=== PATIENT | female | born 1960 | race African-American/Black ===

== ENCOUNTER 2016-08-08 21:17 | Inpatient (IN) | payer MEDICAID ==
[~2016-08-08] VITALS: Ht 165.1 cm; Wt 109.0 kg
[~2016-08-08 21:17] MED LIST: ASPI81CH43 PO; Atorvastatin Calcium PO; CLO01T PO; LOSA100T27 PO; METO-169 PO; NITROSTAT SL; POT20T PO; SUCR1TAB PO; TRIA50TA2 PO; ZOLP5TAB5 PO
[2016-08-08 21:59] LABS: Basophils # (auto) 0 uL; Basophils % (auto) 0.1 % (0.0-2.0); DEFINITIVE VIEW TRANSMISSION; Eosinophils # (auto) 0 uL; Eosinophils % (auto) 0.2 % (0.0-7.0); Hematocrit 35.6 % (36.0-46.0); Hemoglobin 11.9 g/dL (12.2-16.2); Lymphocytes # (auto) 1.1 uL; Lymphocytes % (auto) 6.9 % (10.0-50.0); Mean Corpuscular Hemoglobin 26.5 pg (28.0-32.0); Mean Corpuscular Hgb Conc. 33.5 g/dL (32.0-36.0); Mean Corpuscular Volume 79.2 fL (80.0-100.0); Mean Platelet Volume 8.5 fL (7.4-10.4); Monocytes # (auto) 0.7 uL; Monocytes % (auto) 4.4 % (0.0-12.0); Neutrophils % (auto) 88.4 % (37.0-80.0); Platelet Count (auto) 331 10^3/uL (140-450); Red Cell Distribution Width 16.1 % (11.6-16.0); White Blood Cell 15.9 10^3/uL (4.4-10.8)
[2016-08-08 22:29] LABS: INR 1.11 (0.9-1.15); Partial Thromboplastin Time 27.3 sec (22.64-33.71); Prothrombin Time 11.4 sec (9.37-12.3)
[2016-08-08 22:33] LABS: Albumin 3.3 g/dL (3.4-5.0); BUN/Creatinine Ratio 14.2; Calcium 8.7 mg/dL (8.5-10.1); Magnesium 2.2 mg/dL (1.6-2.6); Potassium 3.4 mmol/L (3.5-5.1)
[2016-08-08 22:38] LABS: Bilirubin, Total 1.3 mg/dL (0.2-1.0); Total Protein 7.9 g/dL (6.4-8.2)
[2016-08-08] MEDS ORDERED: cloNIDine HCL 0.1 MG TAB ONE (22:41)
[2016-08-08] MEDS ORDERED: cloNIDine HCL 0.1 MG TAB PO ONE (22:45)
[2016-08-08] MEDS ORDERED: hydrALAZINE HCL 20 MG/ML VL IV ONE (23:00)
[2016-08-08] MEDS ORDERED: ONDANSETRON HCL 4 MG/2 ML VIAL IV ONE (23:00)
[2016-08-09] VITALS (8 sets, daily range): BP systolic 110–185; BP diastolic 71–117
[2016-08-09] MEDS ORDERED: NITROGLYCERIN 0.4 MG SL TAB SL ONE (00:45)
[2016-08-09] MEDS ORDERED: ENOXAPARIN SOD 100 MG/1 ML SYRINGE SC ONE (00:45)
[2016-08-09] MEDS ORDERED: MORPHINE SULFATE 4 MG/ML SYRG IV ONE (00:45)
[2016-08-09] MEDS ORDERED: ASPirin 81 mg TAB PO ONE (00:45)
[2016-08-09] MEDS ORDERED: ONDANSETRON HCL 4 MG/2 ML VIAL IV ONE (00:45)
[2016-08-09] MEDS ORDERED: cefTRIAXone 1GM/50ML D5W 50 ML IV ONE (00:45)
[2016-08-09 01:21] LABS: Temperature: 21.6 C (20.0-25.0)
[2016-08-09] MEDS ORDERED: MORPHINE SULF INJ 2 MG/ML SYRINGE 1ML IV PRN ×2 (02:15)
[2016-08-09] MEDS ORDERED: FUROSEMIDE 20 MG/2 ML VIAL IV ONE (02:15)
[2016-08-09] MEDS ORDERED: AZITHROMYCIN 500MG/D5W 250ML 250 ML IV ONE (02:15)
[2016-08-09] MEDS ORDERED: NITROGLYCERIN 0.4 MG SL TAB SL PRN (02:15)
[2016-08-09] MEDS ORDERED: DEXTROSE (50%) 50ML SYRG IV PRN (02:15)
[2016-08-09] MEDS ORDERED: HYDROcodone-ACET 5/325MG TAB PO PRN (02:15)
[2016-08-09] MEDS ORDERED: ALBUTEROL SULF 2.5 MG/0.5ML(0.5%) NEB SOLN NEB PRN (02:15)
[2016-08-09] MEDS ORDERED: ONDANSETRON HCL 4 MG/2 ML VIAL IV PRN (02:15)
[2016-08-09] MEDS ORDERED: POTASSIUM CHL 20 Meq TABLET PO ONE (02:15)
[2016-08-09] MEDS ORDERED: ACETAMINOPHEN 325 MG TAB PO PRN (02:15)
[2016-08-09] MEDS ORDERED: cloNIDine HCL 0.1 MG TAB PO ONE (02:45)
[2016-08-09] MEDS ORDERED: METOPROLOL TARTRATE 1MG/1ML-5ML VIAL IV ONE (05:00)
[2016-08-09] MEDS ORDERED: CLOPIDOGREL 300 MG TAB PO ONE (05:30)
[2016-08-09] MEDS: cloNIDine HCL 0.1 MG TAB PO SCH ×3 (05:55→22:28)
[2016-08-09] MEDS: ACCU-CHEK COMFORT CURVE STRIP VI SCH ×3 (05:56→18:08)
[2016-08-09] MEDS: InsuLIN REG 1unit/0.01ml Soln (100units/ml) SC SCH ×3 (05:56→18:00)
[2016-08-09] MEDS ORDERED: ENOXAPARIN SOD 40 MG/0.4 ML SYRINGE SC SCH (10:00)
[2016-08-09] MEDS ORDERED: LOSARTAN POTASSIUM 50 MG TAB PO SCH (10:00)
[2016-08-09] MEDS: ASPirin 81 mg TAB PO SCH (10:13)
[2016-08-09] MEDS: METOPROLOL TARTRATE 50 MG TAB PO SCH ×2 (10:16→22:29)
[2016-08-09] MEDS: FAMOTIDINE 20 MG TAB PO SCH ×2 (10:17→22:28)
[2016-08-09] MEDS: ENOXAPARIN SOD 100 MG/1 ML SYRINGE SC SCH ×2 (10:18→22:29)
[2016-08-09 11:35] LABS: Basophils # (auto) 0 uL; Basophils % (auto) 0.2 % (0.0-2.0); DEFINITIVE VIEW TRANSMISSION; Eosinophils # (auto) 0.2 uL; Eosinophils % (auto) 1.8 % (0.0-7.0); Hematocrit 31.6 % (36.0-46.0); Hemoglobin 10.3 g/dL (12.2-16.2); Lymphocytes # (auto) 0.9 uL; Lymphocytes % (auto) 8.3 % (10.0-50.0); Mean Corpuscular Hemoglobin 26.5 pg (28.0-32.0); Mean Corpuscular Hgb Conc. 32.5 g/dL (32.0-36.0); Mean Corpuscular Volume 81.6 fL (80.0-100.0); Mean Platelet Volume 8.1 fL (7.4-10.4); Monocytes # (auto) 0.8 uL; Monocytes % (auto) 7.1 % (0.0-12.0); Neutrophils # (auto) 9.3 uL; Neutrophils % (auto) 82.6 % (37.0-80.0); Platelet Count (auto) 279 10^3/uL (140-450); Red Cell Distribution Width 16.2 % (11.6-16.0); White Blood Cell 11.2 10^3/uL (4.4-10.8)
[2016-08-09 12:14] LABS: BUN/Creatinine Ratio 14.1; Calcium 8.5 mg/dL (8.5-10.1); Potassium 3.7 mmol/L (3.5-5.1)
[2016-08-09] MEDS ORDERED: SODIUM CHLORIDE 0.9% 500 ML IV ONE (13:00)
[2016-08-09] MEDS: guaiFENesin-DEXTROMETHORPHAN 5ML SYR PO PRN ×2 (14:20→22:36)
[2016-08-09] MEDS ORDERED: SODIUM CHLORIDE 0.9% 1,000 ML IV SCH (17:45)
[2016-08-09] MEDS ORDERED: cefTRIAXone 1GM/50ML D5W 50 ML IV SCH (22:00)
[2016-08-09] MEDS ORDERED: AZITHROMYCIN 500MG/D5W 250ML 250 ML IV SCH (22:00)
[2016-08-10] MEDS: ACCU-CHEK COMFORT CURVE STRIP VI SCH ×4 (00:22→18:00)
[2016-08-10 05:00] VITALS: BP 136/90
[2016-08-10 05:39] LABS: Urine Bilirubin Negative (Negative); Urine Color Yellow (Yellow); Urine Glucose Normal (Normal); Urine Hyaline Cast MOD /lpf (0 - 2); Urine Ketone Negative (Negative); Urine Mucus FEW (None Seen); Urine Nitrite Negative (Negative); Urine RBC 302 /hpf (0 - 4); Urine Squamous Epithelial Cell MOD /hpf (<5); Urine pH 5.5 (5.0-8.0)
[2016-08-10 05:42] LABS: Urine Blood 2+ /uL (Negative)
[2016-08-10 05:53] LABS: Basophils # (auto) 0 uL; Basophils % (auto) 0.3 % (0.0-2.0); DEFINITIVE VIEW TRANSMISSION; Eosinophils # (auto) 0.4 uL; Hematocrit 33.8 % (36.0-46.0); Hemoglobin 11.3 g/dL (12.2-16.2); Lymphocytes # (auto) 1.1 uL; Lymphocytes % (auto) 10.1 % (10.0-50.0); Mean Corpuscular Hemoglobin 26.8 pg (28.0-32.0); Mean Corpuscular Hgb Conc. 33.5 g/dL (32.0-36.0); Mean Corpuscular Volume 80.1 fL (80.0-100.0); Monocytes # (auto) 0.8 uL; Monocytes % (auto) 7.3 % (0.0-12.0); Neutrophils # (auto) 8.6 uL; Neutrophils % (auto) 78.3 % (37.0-80.0); Platelet Count (auto) 306 10^3/uL (140-450); Red Cell Distribution Width 15.8 % (11.6-16.0)
[2016-08-10] MEDS: cloNIDine HCL 0.1 MG TAB PO SCH ×2 (05:54→15:13)
[2016-08-10] MEDS: InsuLIN REG 1unit/0.01ml Soln (100units/ml) SC SCH ×4 (06:01→18:00)
[2016-08-10 06:37] LABS: Potassium 4.2 mmol/L (3.5-5.1)
[2016-08-10 06:38] LABS: Albumin 2.8 g/dL (3.4-5.0); BUN/Creatinine Ratio 19.5; Bilirubin, Total 0.5 mg/dL (0.2-1.0); Magnesium 2.6 mg/dL (1.6-2.6); Phosphorus 3.1 mg/dL (2.5-4.90); Total Protein 7.5 g/dL (6.4-8.2); Uric Acid 7.9 mg/dL (2.6-6.0)
[2016-08-10 09:00] VITALS: BP 140/64
[2016-08-10] MEDS ORDERED: CLOPIDOGREL BISULFATE 75 MG TAB PO SCH (10:00)
[2016-08-10] MEDS: ENOXAPARIN SOD 100 MG/1 ML SYRINGE SC SCH (10:05)
[2016-08-10] MEDS: FAMOTIDINE 20 MG TAB PO SCH (10:05)
[2016-08-10] MEDS: ASPirin 81 mg TAB PO SCH (10:05)
[2016-08-10] MEDS: METOPROLOL TARTRATE 50 MG TAB PO SCH (10:06)
[2016-08-10] MEDS ORDERED: GADOPENTETATE DIMEGLUMINE (10MMOL/20 ML) VIAL IV ONE (12:27)
[2016-08-10 13:00] VITALS: BP 151/62
[2016-08-10] MEDS ORDERED: LORazepam 2MG/ML-1ML VIAL IV ONE (13:45)
[2016-08-10] MEDS ORDERED: LEVO500T3 PO (16:52)
[2016-08-10] MEDS ORDERED: ALBUAER3 IN (16:52)
[2016-08-10 17:00] VITALS: BP 151/82
[2016-08-10 17:02] VITALS: BP 151/82
== END 2016-08-10 19:05 | disposition home health service (06) | DRG 140 ==
LOC: ER 21:21 → TELE 21:22 → TELE-CENTR 08-09 06:32
PROVIDERS: ADMIT Nurse Practitioner; ATTEND Internal Medicine
DX: J44.0 Chronic obstructive pulmonary disease with (acute) lower respiratory infection (principal); N17.0 Acute kidney failure with tubular necrosis; I50.33 Acute on chronic diastolic (congestive) heart failure; J18.9 Pneumonia, unspecified organism; I13.0 Hypertensive heart and chronic kidney disease with heart failure and stage 1 through stage 4 chronic kidney disease, or unspecified chronic kidney disease; E11.22 Type 2 diabetes mellitus with diabetic chronic kidney disease; N18.3 Chronic kidney disease, stage 3 (moderate); E86.0 Dehydration; D64.9 Anemia, unspecified; E66.9 Obesity, unspecified; E78.5 Hyperlipidemia, unspecified; H05.89 Other disorders of orbit; R07.89 Other chest pain; I16.0 Hypertensive urgency; I25.10 Atherosclerotic heart disease of native coronary artery without angina pectoris; H53.8 Other visual disturbances; J45.909 Unspecified asthma, uncomplicated; K21.9 Gastro-esophageal reflux disease without esophagitis; Z82.3 Family history of stroke; Z82.49 Family history of ischemic heart disease and other diseases of the circulatory system; Z87.442 Personal history of urinary calculi; Z79.810 Long term (current) use of selective estrogen receptor modulators (SERMs); Z86.718 Personal history of other venous thrombosis and embolism; Z68.41 Body mass index [BMI] 40.0-44.9, adult
CPT/HCPCS: 36415; 70450; 70540; 71010; 74176; 76775; 80048; 80053; 81001; 82570; 82962; 83735; 83880; 83970; 84100; 84156; 84300; 84443; 84484; 84550; 85025; 85610; 85730; 87040; 93005; 96365; 96372; 96375; 96376; J0696; J1815; J2405

== ENCOUNTER 2016-10-21 19:55 | Inpatient (IN) | payer MEDICAID ==
[~2016-10-21] VITALS: Ht 167.6 cm; Wt 109.6 kg
[~2016-10-21 19:55] MED LIST changes: +ALBUAER3 IN; +LEVO500T21 PO; -LOSA100T27 PO; -TRIA50TA2 PO
[2016-10-21] MEDS ORDERED: METOPROLOL TARTRATE 50 MG TAB PO ONE ×2 (20:30→20:45)
[2016-10-21] MEDS ORDERED: ASPirin 81 mg TAB PO ONE ×3 (20:30→23:45)
[2016-10-21 22:23] LABS: Basophils # (auto) 0 uL; Basophils % (auto) 0.6 % (0.0-2.0); DEFINITIVE VIEW TRANSMISSION; Eosinophils # (auto) 0.3 uL; Eosinophils % (auto) 4.1 % (0.0-7.0); Hematocrit 35.6 % (36.0-46.0); Hemoglobin 11.9 g/dL (12.2-16.2); Lymphocytes # (auto) 1.8 uL; Lymphocytes % (auto) 24.7 % (10.0-50.0); Mean Corpuscular Hemoglobin 26.7 pg (28.0-32.0); Mean Corpuscular Hgb Conc. 33.3 g/dL (32.0-36.0); Mean Corpuscular Volume 80.1 fL (80.0-100.0); Mean Platelet Volume 9.3 fL (7.4-10.4); Monocytes # (auto) 0.5 uL; Monocytes % (auto) 6.8 % (0.0-12.0); Neutrophils # (auto) 4.7 uL; Neutrophils % (auto) 63.8 % (37.0-80.0); Platelet Count (auto) 330 10^3/uL (140-450); Red Cell Distribution Width 16.8 % (11.6-16.0); White Blood Cell 7.4 10^3/uL (4.4-10.8)
[2016-10-21 22:29] LABS: Potassium 3.1 mmol/L (3.5-5.1)
[2016-10-21 22:34] LABS: INR 0.95 (0.9-1.15); Prothrombin Time 10.3 sec (9.37-12.3)
[2016-10-21 22:36] LABS: Albumin 3.2 g/dL (3.4-5.0); BUN/Creatinine Ratio 14.1; Bilirubin, Total 0.4 mg/dL (0.2-1.0); Calcium 8.7 mg/dL (8.5-10.1); Magnesium 2.2 mg/dL (1.6-2.6); Total Protein 7.7 g/dL (6.4-8.2)
[2016-10-21] MEDS ORDERED: MORPHINE SULFATE 4 MG/ML SYRG IV ONE (23:45)
[2016-10-21] MEDS ORDERED: cloNIDine HCL 0.1 MG TAB PO ONE (23:45)
[2016-10-21] MEDS ORDERED: NITROGLYCERIN 2% OINT 1GM PKG TD ONE (23:45)
[2016-10-21] MEDS ORDERED: ONDANSETRON HCL 4 MG/2 ML VIAL IV ONE (23:45)
[2016-10-21 23:48] LABS: B-Type Natriuretic Peptide 144.07 pg/mL (0-100)
[2016-10-22] VITALS (8 sets, daily range): BP systolic 109–167; BP diastolic 62–100
[2016-10-22] MEDS ORDERED: MORPHINE SULF INJ 2 MG/ML SYRINGE 1ML IV PRN
[2016-10-22] MEDS ORDERED: NITROGLYCERIN 0.4 MG SL TAB SL PRN
[2016-10-22] MEDS ORDERED: LABETALOL HCL 5 MG/ML 4ML SYRINGE IV PRN
[2016-10-22] MEDS ORDERED: LORazepam 2MG/ML-1ML VIAL IV PRN
[2016-10-22] MEDS ORDERED: NITROGLYCERIN 0.2MG/HR TOPICAL PATCH TD ONE
[2016-10-22] MEDS: POTASSIUM CHL 20 Meq TABLET PO ONE ×2 (01:32)
[2016-10-22] MEDS ORDERED: NIFE90TA30 PO (02:39)
[2016-10-22] MEDS ORDERED: ISOS30TA4 PO (02:39)
[2016-10-22] MEDS: cloNIDine HCL 0.1 MG TAB PO SCH ×3 (05:35→21:36)
[2016-10-22 07:39] LABS: Potassium 3.4 mmol/L (3.5-5.1)
[2016-10-22 07:47] LABS: BUN/Creatinine Ratio 15.2; Calcium 8.9 mg/dL (8.5-10.1)
[2016-10-22] MEDS: PANTOPRAZOLE 40 MG TAB PO SCH (09:41)
[2016-10-22] MEDS: ASPirin 81 mg TAB PO SCH (09:41)
[2016-10-22 09:57] LABS: Cholesterol 210 mg/dL (< 200); HDL Cholesterol 52 mg/dL (40-59); LDL Cholesterol 150 mg/dL (< 100); Triglycerides 65 mg/dL (< 150)
[2016-10-22] MEDS ORDERED: NITROGLYCERIN 0.2MG/HR TOPICAL PATCH TD SCH (10:00)
[2016-10-22] MEDS ORDERED: METOPROLOL TARTRATE 50 MG TAB PO SCH (10:00)
[2016-10-22 15:13] LABS: Urine Bilirubin Negative (Negative); Urine Color Yellow (Yellow); Urine Glucose Normal (Normal); Urine Ketone Negative (Negative); Urine Mucus FEW (None Seen); Urine Nitrite Negative (Negative); Urine RBC 111 /hpf (0 - 4); Urine Squamous Epithelial Cell FEW /hpf (<5)
[2016-10-22 15:25] LABS: Urine Blood 2+ /uL (Negative)
[2016-10-22] MEDS ORDERED: NIFEdipine ER 30 MG TAB PO SCH (18:00)
[2016-10-22] MEDS: METOPROLOL TARTRATE 50 MG TAB PO SCH (21:37)
[2016-10-22] MEDS ORDERED: ATORVASTATIN 20 MG TAB PO SCH (22:00)
[2016-10-23 05:00] VITALS: BP 145/71
[2016-10-23] MEDS: cloNIDine HCL 0.1 MG TAB PO SCH ×2 (05:45→12:31)
[2016-10-23] MEDS: METOPROLOL TARTRATE 50 MG TAB PO SCH ×2 (05:46→12:32)
[2016-10-23 08:00] VITALS: BP 137/73
[2016-10-23 09:15] VITALS: BP 137/73
[2016-10-23] MEDS: PANTOPRAZOLE 40 MG TAB PO SCH (10:20)
[2016-10-23] MEDS: ASPirin 81 mg TAB PO SCH (10:20)
[2016-10-23 13:14] VITALS: BP 190/99
[2016-10-23 17:31] VITALS: BP 137/73
== END 2016-10-23 18:45 | disposition home or self-care (01) | DRG 201 ==
LOC: EDBD 19:55 → ER 19:59 → TELE 20:00 → TELE-EAST 10-22 01:52
PROVIDERS: ADMIT Internal Medicine; ATTEND Hospitalist
DX: I47.1 Supraventricular tachycardia (principal); E87.0 Hyperosmolality and hypernatremia; I11.0 Hypertensive heart disease with heart failure; I50.9 Heart failure, unspecified; E66.01 Morbid (severe) obesity due to excess calories; J44.9 Chronic obstructive pulmonary disease, unspecified; Z87.442 Personal history of urinary calculi; Z68.39 Body mass index [BMI] 39.0-39.9, adult; E11.9 Type 2 diabetes mellitus without complications; E87.6 Hypokalemia; I34.0 Nonrheumatic mitral (valve) insufficiency; N28.9 Disorder of kidney and ureter, unspecified; Z82.49 Family history of ischemic heart disease and other diseases of the circulatory system; I25.2 Old myocardial infarction; Z79.82 Long term (current) use of aspirin; E78.5 Hyperlipidemia, unspecified; Z71.89 Other specified counseling
CPT/HCPCS: 36415; 71010; 80048; 80053; 80061; 81001; 83036; 83735; 83880; 84443; 84484; 85025; 85379; 85610; 85730; 96374; 96375; J2405

== ENCOUNTER 2016-10-27 10:49 | Emergency (ER) | payer MEDICAID ==
[~2016-10-27] VITALS: Ht 165.1 cm; Wt 107.5 kg
[~2016-10-27 10:49] MED LIST changes: -Atorvastatin Calcium PO; +ISOS30TA4 PO; -LEVO500T21 PO; +NIFE90TA30 PO; -POT20T PO
[2016-10-27 11:53] LABS: Basophils # (auto) 0.1 uL; Basophils % (auto) 1.4 % (0.0-2.0); DEFINITIVE VIEW TRANSMISSION; Eosinophils # (auto) 0.4 uL; Eosinophils % (auto) 5.7 % (0.0-7.0); Hematocrit 38.9 % (36.0-46.0); Lymphocytes # (auto) 1.4 uL; Lymphocytes % (auto) 20.2 % (10.0-50.0); Mean Corpuscular Hemoglobin 26.7 pg (28.0-32.0); Mean Corpuscular Hgb Conc. 33.5 g/dL (32.0-36.0); Mean Corpuscular Volume 79.8 fL (80.0-100.0); Mean Platelet Volume 9.2 fL (7.4-10.4); Monocytes # (auto) 0.4 uL; Monocytes % (auto) 5.1 % (0.0-12.0); Neutrophils # (auto) 4.7 uL; Neutrophils % (auto) 67.6 % (37.0-80.0); Platelet Count (auto) 371 10^3/uL (140-450); Red Cell Distribution Width 16.4 % (11.6-16.0)
[2016-10-27 12:22] LABS: Albumin 3.5 g/dL (3.4-5.0); Bilirubin, Total 0.5 mg/dL (0.2-1.0); Calcium 9.5 mg/dL (8.5-10.1); Potassium 3.3 mmol/L (3.5-5.1); Total Protein 8.3 g/dL (6.4-8.2)
[2016-10-27] MEDS ORDERED: cloNIDine HCL 0.1 MG TAB PO ONE (13:00)
[2016-10-27 13:33] VITALS: BP 212/115
[2016-10-27] MEDS ORDERED: LORazepam 2MG/ML-1ML VIAL IV ONE (13:45)
[2016-10-27] MEDS ORDERED: LABETALOL HCL 5 MG/ML 4ML SYRINGE IV ONE (13:45)
== END 2016-10-27 14:41 | disposition home or self-care (01) ==
LOC: EDBD 10:49 → ER 10:49
DX: I16.0 Hypertensive urgency (principal); I11.0 Hypertensive heart disease with heart failure; I50.9 Heart failure, unspecified; J45.909 Unspecified asthma, uncomplicated; J44.9 Chronic obstructive pulmonary disease, unspecified; R42 Dizziness and giddiness; E78.5 Hyperlipidemia, unspecified; Z87.442 Personal history of urinary calculi; E11.9 Type 2 diabetes mellitus without complications; Z79.82 Long term (current) use of aspirin; Z86.73 Personal history of transient ischemic attack (TIA), and cerebral infarction without residual deficits
CPT/HCPCS: 36415; 70450; 71010; 80053; 84443; 85025

== ENCOUNTER 2016-11-17 02:03 | Emergency (ER) | payer MEDICAID ==
[~2016-11-17] VITALS: Ht 165.1 cm; Wt 99.8 kg
[2016-11-17 02:25] VITALS: BP 157/97
[2016-11-17] MEDS ORDERED: SODIUM CHLORIDE 0.9% 150 ML IV ONE (02:45)
== END 2016-11-17 03:19 | disposition left against medical advice (07) ==
LOC: ER 02:09
DX: R07.89 Other chest pain (principal); Z53.21 Procedure and treatment not carried out due to patient leaving prior to being seen by health care provider
CPT/HCPCS: 93005

== ENCOUNTER 2017-08-14 06:52 | Inpatient (IN) | payer MEDICAID ==
[~2017-08-14] VITALS: Ht 167.6 cm; Wt 109.0 kg
[~2017-08-14 06:52] MED LIST changes: +AMLO5TAB2 PO; -CLO01T PO; +CLON0.1T PO; +FURO20TA PO; +METF-370 PO; -METO-169 PO; -NIFE90TA30 PO; -NITROSTAT SL; -SUCR1TAB PO; -ZOLP5TAB5 PO
[2017-08-14] MEDS ORDERED: cloNIDine HCL 0.1 MG TAB PO ONE ×2 (07:15→13:45)
[2017-08-14 07:43] LABS: Basophils # (auto) 0.1 uL; Eosinophils # (auto) 0.3 uL; Monocytes # (auto) 0.5 uL; Nucleated Red Blood Cells % 0.1 %
[2017-08-14 07:44] LABS: Basophils % (auto) 1.8 % (0.0-2.0); Eosinophils % (auto) 4.3 % (0.0-7.0); Hematocrit 38.9 % (36.0-46.0); Hemoglobin 13.1 g/dL (12.2-16.2); Lymphocytes # (auto) 1.6 uL; Lymphocytes % (auto) 20.4 % (10.0-50.0); Mean Corpuscular Hemoglobin 27.6 pg (28.0-32.0); Mean Corpuscular Hgb Conc. 33.8 g/dL (32.0-36.0); Mean Corpuscular Volume 81.7 fL (80.0-100.0); Monocytes % (auto) 6.3 % (0.0-12.0); Neutrophils # (auto) 5.4 uL; Neutrophils % (auto) 67.2 % (37.0-80.0); Platelet Count (auto) 337 10^3/uL (140-450); Red Blood Cells 4.76 10^6/uL (4.0-5.20); Red Cell Distribution Width 14.8 % (11.8-14.3)
[2017-08-14 08:03] LABS: INR 0.95 (0.9-1.15); Partial Thromboplastin Time 27.3 sec (22.64-33.71); Prothrombin Time 10.4 sec (9.37-12.3)
[2017-08-14 08:06] LABS: Albumin 3.3 g/dL (3.4-5.0); BUN/Creatinine Ratio 13.7; Bilirubin, Total 0.4 mg/dL (0.2-1.0); Calcium 8.8 mg/dL (8.5-10.1); Magnesium 2.3 mg/dL (1.6-2.6); Potassium 3.2 mmol/L (3.5-5.1); Total Protein 8.9 g/dL (6.4-8.2)
[2017-08-14] MEDS ORDERED: HYDROcodone-ACET 10/325MG TAB PO ONE (09:15)
[2017-08-14 09:21] LABS: Urine Bacteria FEW /hpf (None Seen); Urine Blood Negative /uL (Negative); Urine Specific Gravity 1.016 (1.001-1.035); Urine WBC 5 /hpf (0 - 5)
[2017-08-14] MEDS ORDERED: LABETALOL HCL 5 MG/ML ML 20ML VIAL IV ONE ×2 (11:00→13:45)
[2017-08-14] MEDS ORDERED: POTASSIUM CHL 10% (20 MEQ/15ML) 15ml ORAL SOLN PO ONE (11:45)
[2017-08-14] MEDS ORDERED: cefTRIAXone 1GM/10ml IVPUSH 10 ML IV ONE (11:45)
[2017-08-14] MEDS ORDERED: IPRATROPIUM BROM 0.5 MG/2.5ML INH SOL NEB PRN (12:15)
[2017-08-14] MEDS ORDERED: MORPHINE SULFATE 4 MG/ML SYR/VIAL IV PRN (12:15)
[2017-08-14] MEDS ORDERED: ONDANSETRON HCL 4 MG/2 ML VIAL IV PRN (12:15)
[2017-08-14] MEDS ORDERED: ALBUTEROL SULF 2.5 MG/0.5ML(0.5%) NEB SOLN NEB PRN (12:15)
[2017-08-14] MEDS ORDERED: hydrALAZINE HCL 20 MG/ML VL IV ONE (12:15)
[2017-08-14] MEDS ORDERED: HYDROcodone-ACET 5/325MG TAB PO PRN (12:15)
[2017-08-14] MEDS ORDERED: LABETALOL HCL 5 MG/ML ML 20ML VIAL IV PRN ×2 (12:15→16:15)
[2017-08-14] MEDS ORDERED: METOPROLOL TARTRATE 50 MG TAB PO ONE (12:15)
[2017-08-14] MEDS ORDERED: LISINOPRIL 20 MG TAB PO ONE (12:30)
[2017-08-14] MEDS ORDERED: FUROSEMIDE 20 MG TAB PO ONE (12:30)
[2017-08-14] MEDS ORDERED: amLODIPine BESYLATE 5 MG TAB PO ONE (12:30)
[2017-08-14] MEDS ORDERED: ASPirin 81 mg TAB PO ONE (12:30)
[2017-08-14 13:06] LABS: Cholesterol 273 mg/dL (< 200); HDL Cholesterol 54 mg/dL (40-59); LDL Cholesterol 170 mg/dL (< 100); Triglycerides 93 mg/dL (< 150)
[2017-08-14] MEDS ORDERED: LORazepam 2MG/ML-1ML VIAL IM ONE (13:15)
[2017-08-14] MEDS ORDERED: ALPRAZolam 0.25 MG TAB PO PRN (13:15)
[2017-08-14] MEDS: cloNIDine HCL 0.1 MG TAB PO SCH ×2 (14:00→22:06)
[2017-08-14 15:11] VITALS: BP 167/104
[2017-08-14] MEDS ORDERED: cloNIDine HCL 0.1 MG TAB PO PRN (16:15)
[2017-08-14] MEDS: hydrALAZINE HCL 20 MG/ML VL IV SCH ×3 (17:56→23:45)
[2017-08-14 20:39] VITALS: BP 167/104
[2017-08-14 21:48] VITALS: BP 106/55
[2017-08-14 22:00] VITALS: BP 176/100
[2017-08-14] MEDS ORDERED: ATORVASTATIN 20 MG TAB PO SCH (22:00)
[2017-08-14] MEDS: METOPROLOL TARTRATE 50 MG TAB PO SCH (22:07)
[2017-08-15] VITALS (7 sets, daily range): BP systolic 106–132; BP diastolic 52–79
[2017-08-15] MEDS: hydrALAZINE HCL 20 MG/ML VL IV SCH ×3 (06:00→18:00)
[2017-08-15] MEDS: cloNIDine HCL 0.1 MG TAB PO SCH ×2 (06:00→14:55)
[2017-08-15 07:12] LABS: BUN/Creatinine Ratio 11.3; Potassium 3.8 mmol/L (3.5-5.1)
[2017-08-15 07:14] LABS: Basophils # (auto) 0.1 uL; Basophils % (auto) 1.3 % (0.0-2.0); Eosinophils # (auto) 0.4 uL; Eosinophils % (auto) 5.7 % (0.0-7.0); Hematocrit 35.7 % (36.0-46.0); Hemoglobin 11.9 g/dL (12.2-16.2); Lymphocytes # (auto) 1.8 uL; Lymphocytes % (auto) 27.5 % (10.0-50.0); Mean Corpuscular Hemoglobin 27.6 pg (28.0-32.0); Mean Corpuscular Hgb Conc. 33.4 g/dL (32.0-36.0); Mean Corpuscular Volume 82.6 fL (80.0-100.0); Monocytes # (auto) 0.5 uL; Monocytes % (auto) 8.2 % (0.0-12.0); Neutrophils # (auto) 3.8 uL; Neutrophils % (auto) 57.3 % (37.0-80.0); Nucleated Red Blood Cells % 0.1 %; Platelet Count (auto) 330 10^3/uL (140-450); Red Blood Cells 4.32 10^6/uL (4.0-5.20); Red Cell Distribution Width 15.2 % (11.8-14.3); White Blood Cell 6.6 10^3/uL (4.4-10.8)
[2017-08-15] MEDS ORDERED: amLODIPine BESYLATE 5 MG TAB PO SCH (10:00)
[2017-08-15] MEDS ORDERED: LISINOPRIL 20 MG TAB PO SCH (10:00)
[2017-08-15] MEDS ORDERED: ASPirin 81 mg TAB PO SCH (10:00)
[2017-08-15] MEDS ORDERED: FUROSEMIDE 20 MG TAB PO SCH (10:00)
[2017-08-15] MEDS: METOPROLOL TARTRATE 50 MG TAB PO SCH (10:14)
[2017-08-15] MEDS ORDERED: LISI-646 PO (16:25)
== END 2017-08-15 18:40 | disposition home or self-care (01) | DRG 194 ==
LOC: ER 06:52 → EDBD 06:52 → TELE 06:53 → TELE-WESTW 15:00
PROVIDERS: ADMIT Internal Medicine; ATTEND Hospitalist
DX: I11.0 Hypertensive heart disease with heart failure (principal); G45.9 Transient cerebral ischemic attack, unspecified; I50.32 Chronic diastolic (congestive) heart failure; E11.9 Type 2 diabetes mellitus without complications; E78.5 Hyperlipidemia, unspecified; E87.6 Hypokalemia; E66.9 Obesity, unspecified; J45.909 Unspecified asthma, uncomplicated; I49.9 Cardiac arrhythmia, unspecified; H05.89 Other disorders of orbit; Z79.84 Long term (current) use of oral hypoglycemic drugs; Z79.899 Other long term (current) drug therapy; Z82.3 Family history of stroke; Z82.49 Family history of ischemic heart disease and other diseases of the circulatory system; Z68.38 Body mass index [BMI] 38.0-38.9, adult; Z86.73 Personal history of transient ischemic attack (TIA), and cerebral infarction without residual deficits
CPT/HCPCS: 36415; 70450; 71046; 80048; 80053; 80061; 81001; 83036; 83735; 83880; 84443; 84484; 85025; 85610; 85730; 93005; 96372; 96374; 96375; 96376; 99291; J2405